=== PATIENT | female | born 1980 | race Caucasian/White ===

== ENCOUNTER → 2018-04-11 | Outpatient (CLI) | payer OTHER ==
[~2018-04-11] MED LIST: MULVITMINE PO
== END | disposition home or self-care (01) ==
LOC: LAB UCHC 09:30 → LAB SHORT 09:30
DX: R35.0 Frequency of micturition (principal)
CPT/HCPCS: 87077; 87086; 87186

== ENCOUNTER → 2019-02-23 | Outpatient (CLI) | payer OTHER | END | disposition home or self-care (01) | LOC: LAB 19:26 → LAB SHORT 19:26 | DX: N39.0 Urinary tract infection, site not specified (principal) | CPT/HCPCS: 87077; 87086; 87186 ==

== ENCOUNTER → 2020-03-28 | Outpatient (CLI) | payer OTHER ==
[2020-03-29 09:36] LABS: Candida species (DNA Probe) Negative (NEGATIVE); G. vaginalis (DNA Probe) Positive (NEGATIVE); T. vaginalis (DNA Probe) Negative (NEGATIVE)
[2020-04-02 12:01] LABS: CHLAMYDIA BY NAA Negative (Negative); GONOCOCCUS BY NAA Negative (Negative); TRICH VAG BY NAA Negative (Negative)
== END | disposition home or self-care (01) ==
LOC: LAB EV 19:03 → LAB SHORT 19:03
PROVIDERS: Physician Assistant
DX: N39.0 Urinary tract infection, site not specified (principal)
CPT/HCPCS: 87077; 87086; 87186; 87480; 87491; 87510; 87529; 87591; 87660; 87661

== ENCOUNTER → 2021-02-26 | Outpatient (CLI) | payer OTHER ==
[2021-02-28 16:08] LABS: HPV 16 Negative (Negative); HPV 18 Negative (Negative); HPV OTHER HR TYPES Negative (Negative)
== END ==
LOC: LAB SHORT 13:34
PROVIDERS: Registered Nurse Community Health
DX: Z12.4 Encounter for screening for malignant neoplasm of cervix (principal)
CPT/HCPCS: 87624; G0123

== ENCOUNTER 2021-08-28 09:18 | Day surgery (SDC) | payer OTHER ==
[~2021-08-28] VITALS: Ht 154.9 cm; Wt 73.4 kg
[~2021-08-28 09:18] MED LIST changes: +MULVITA PO; +Prinivil10 MG PO; +SPRINTEC PO; +TURMERIC500 M2 PO
--- NOTE | 2021-08-28 10:34 | NUR ---
Ambulatory in Day Surgery History, Chart, Medications and Allergies reviewed before start of procedure.Lungs clear T/O to Auscultation. Patient confirms NPO status and agrees with scheduled surgery. Pre-Op teaching done. Pt verbalizes understanding. Patient States Post-Procedure ride home has been arranged.
--- NOTE | 2021-08-28 12:28 | NUR ---
08/28/21 1228 COSTALORRIE GODINEZ FLUID DEFICIT AFTER PROCEDURE NOTED TO BE 500 ML, DR FULLER MADE AWARE, NO NEW ORDERS.
--- NOTE | 2021-08-28 13:48 | NUR ---
PT PROVIDED WARM BLANKETS FOR WARMTH AND COMFORT. PT STATES CRAMPING PAIN IS INCREASING IN LOWER ABDOMEN ABOVE VAGINA. PT EXPERIENCING SOME NAUSEA AFTER DRINKING ORANGE JUICE. MEDICATED WITH ZOFRAN. PT NOW RESTING PEACEFULLY AND SNACKING ON SALTINE CRACKERS AND REQUESTING PAIN MEDICATION.
--- NOTE | 2021-08-28 14:10 | NUR ---
Patient up to Ambulate independently. Gait steady. Discharge instructions reviewed with patient. Patient verbalizes understanding. Copy given to patient to take home. Patient States Post-Procedure ride home has been arranged. Discharged via wheelchair to private car for ride home.
== END 2021-08-28 12:00 | disposition home or self-care (01) ==
LOC: ORSCMMR 09:18 → ORSCSDS 11:00 → ORSCMMR 11:15 → ORSCSDS 11:15 → ORSCMMR 12:00
PROVIDERS: Obstetrics & Gynecology
PROC: 0UDB8ZX Extraction of Endometrium, Via Natural or Artificial Opening Endoscopic, Diagnostic (ICD-10-PCS; principal; 2021-08-28 11:00)
PROC: 0U5B8ZZ Destruction of Endometrium, Via Natural or Artificial Opening Endoscopic (ICD-10-PCS; principal; 2021-08-28 11:00)
DX: N92.1 Excessive and frequent menstruation with irregular cycle (principal); N94.6 Dysmenorrhea, unspecified; I10 Essential (primary) hypertension; Z79.899 Other long term (current) drug therapy
CPT/HCPCS: 88305; A9270; J0690; J1100; J1885; J2405; J2704; J3010; J7120

== ENCOUNTER → 2023-12-13 | Outpatient (CLI) | payer OTHER | END | disposition home or self-care (01) | LOC: LAB SHORT 08:03 → LAB EV 08:03 | DX: N20.0 Calculus of kidney (principal) | CPT/HCPCS: 81050 ==

== ENCOUNTER → 2024-05-03 | Outpatient (CLI) | payer OTHER | END | disposition home or self-care (01) | LOC: LAB SHORT 07:58 → LAB 07:58 | DX: L60.2 Onychogryphosis (principal); B35.1 Tinea unguium | CPT/HCPCS: 88305; 88312 ==

== ENCOUNTER → 2025-02-23 | Outpatient (CLI) | payer OTHER ==
[2025-02-24 08:07] LABS: Chlamydia Trachomatis Urine NOT DETECTED (NOT DETECT); Neisseria Gonorrhoea Urine NOT DETECTED (NOT DETECT)
== END ==
LOC: LAB SHORT 15:52 → LAB 15:52
PROVIDERS: Physician Assistant
DX: Z11.59 Encounter for screening for other viral diseases (principal)
CPT/HCPCS: 87491; 87591